=== PATIENT | female | born 1970 | race Caucasian/White ===

== ENCOUNTER 2024-08-17 08:48 | Inpatient (IN) ==
[2024-08-17] MEDS ORDERED: VANCOMYCIN CONSULT ACTIVE PRN ×2 (09:05→12:22)
--- NOTE | 2024-08-17 09:08 | Emergency Department Note ---
Impression & Plan Cellulitis and abscess of face ADMIT ED Provider Note HPI: History obtained from Patient. The patient is a 54-year-old female who presents the emergency department with a chief complaint of left-sided facial swelling and upper lip swelling. Patient states this has been ongoing since Saturday morning. Patient states she saw her PCP on Saturday and she was placed on Bactrim. Patient states over the course of the next 3 days the facial swelling worsened significantly. Patient states this morning when she woke up she had extreme swelling of the left upper lip and the inferior aspect of the left orbit and therefore came to the ER to be assessed. Patient states she was concerned that she might of had a spider bite on Saturday because she had similar lesions in the past that were from spider bites. On arrival here to the ER the patient is hypertensive but otherwise hemodynamically stable. She does not exhibit any respiratory distress. There is no trismus, no stridor, patient is saturating well on room air without tachypnea. ROS: - Per HPI Differential Diagnosis: Angioedema of the face, facial cellulitis, abscess, amongst other potential pathologies. *Outpatient medications and allergy history reviewed. PE: General: Alert HEENT: There is significant swelling of the inferior aspect of the left orbit and the left upper lip with surrounding erythema, there is a scabbed lesion underneath the left nostril without any active purulent drainage, uvula is midline, there is no posterior pharyngeal swelling noted, otherwise normocephalic, trachea midline Eyes: Extraocular eye movement is intact, no scleral erythema Pulmonary: Clear to auscultation bilaterally, no wheezing Cardio: Regular rate and rhythm GI: Abdomen is soft to palpation : No suprapubic tenderness MSK: No evidence of trauma or malformation of the extremities, no edema Skin: No evidence of rash Neuro: Alert, no focal deficits Psychiatric: Cooperative INDEPENDENT INTERPRETATIONS: court recording monitor: (As interpreted by myself): - An order was placed for continuous cardiac monitoring - Patient was noted to be in sinus rhythm with a rate of 90 Interventions provided in ED: -IV vancomycin, IV Unasyn, IV morphine, IV Zofran Medical Decision Making: IV was established and lab work obtained, patient was placed on personnel monitor. Lab work shows a mild leukocytosis at 11.81, hemoglobin is normal, platelet count is normal, CMP does not show any evidence of any critical findings. Given the degree of the facial swelling appreciated on exam, CT imaging of the facial bones were ordered with IV contrast, this does show evidence of an abscess underlying the area of maximum swelling to the left upper lip measuring approximately 4 cm in maximum length. This does appear to be loculated according to the interpreting radiologist. I discussed these findings with the on-call oral surgeon, Dr. Nielsen, and he did evaluate the patient at the bedside. Following his evaluation given the degree of swelling and worsening of the cellulitis over the past 24 hours despite being on antibiotics as an outpatient, we will admit the patient for IV antibiotics and further management. Dr. Nielsen is agreeable for consultation and requested admission to the medicine service. I discussed the patient's presentation with Dr. Paulson and the patient was placed for admission in stable condition. Consultants/Discussions held with other healthcare providers: -Hospitalist, Dr. Paulson -OMFS, Dr. Nielsen Disposition discussion held by myself with: -Patient Diagnosis: 1. Left-sided facial cellulitis with abscess, acute 2. Leukocytosis, acute Disposition: Admission Miguel Vance DO Emergency Medicine Past Med/Surg History Problem List (Updated 08/17/24 @ 16:30 by Miguel Vance DO) HTN (hypertension) GERD (gastroesophageal reflux disease) Cellulitis and abscess of face (Acute) Swollen upper lip Social History Smoking Status: Never smoker Preferred Language: South Korean Feels Safe at Home: Yes Allergies Allergies Allergy/AdvReac Type Severity Reaction Status Date / Time No Known Allergies Allergy Unverified 08/17/24 13:17 Home Meds Home Medications Medication Instructions Recorded Confirmed lisinopril 10 mg tablet 10 mg PO UD 08/17/24 08/17/24 Results & Data (ED) Vital Signs Vital Signs - 24 hr 08/17/24 08:51 08/17/24 09:30 08/17/24 09:30 Temperature 36.6 C Temperature Source Temporal Artery Scan Pulse Rate 78 79 72 Pulse Rate from SpO2 Sensor 73 Pulse Rhythm Regular Pulse Strength Normal Respiratory Rate 20 29 H Respiratory Effort / Characteristics Non-Labored Spontaneous Respiratory Depth Normal Respiratory Pattern Regular Blood Pressure 175/97 H 169/96 H Blood Pressure Mean 123 120 Blood Pressure Position Sitting Pulse Oximetry 98 97 Oxygen Delivery Method Room Air Sepsis Recent Fever Within 48 Hours No Sepsis New/Unexplained Change in Mental Status No Sepsis Action Taken by Nursing No Action Required 08/17/24 09:42 08/17/24 09:51 08/17/24 10:21 Temperature Temperature Source Pulse Rate 63 68 65 Pulse Rate from SpO2 Sensor 64 67 68 Pulse Rhythm Pulse Strength Respiratory Rate 20 20 20 Respiratory Effort / Characteristics Respiratory Depth Respiratory Pattern Blood Pressure 178/84 H Blood Pressure Mean 115 Blood Pressure Position Pulse Oximetry 97 94 95 Oxygen Delivery Method Sepsis Recent Fever Within 48 Hours Sepsis New/Unexplained Change in Mental Status Sepsis Action Taken by Nursing 08/17/24 10:30 08/17/24 10:54 08/17/24 11:03 Temperature Temperature Source Pulse Rate 64 76 72 Pulse Rate from SpO2 Sensor 64 76 74 Pulse Rhythm Pulse Strength Respiratory Rate 20 20 21 Respiratory Effort / Characteristics Respiratory Depth Respiratory Pattern Blood Pressure 172/87 H Blood Pressure Mean 115 Blood Pressure Position Pulse Oximetry 97 94 94 Oxygen Delivery Method Sepsis Recent Fever Within 48 Hours Sepsis New/Unexplained Change in Mental Status Sepsis Action Taken by Nursing 08/17/24 11:14 Temperature Temperature Source Pulse Rate Pulse Rate from SpO2 Sensor Pulse Rhythm Pulse Strength Respiratory Rate Respiratory Effort / Characteristics Respiratory Depth Respiratory Pattern Blood Pressure Blood Pressure Mean Blood Pressure Position Pulse Oximetry 96 Oxygen Delivery Method Room Air Sepsis Recent Fever Within 48 Hours Sepsis New/Unexplained Change in Mental Status Sepsis Action Taken by Nursing Laboratory Data 08/17/24 09:00 08/17/24 09:00 Lab Results 08/17/24 Range/Units 09:00 WBC 11.81 H (4.8-10.8) K/ul RBC 4.40 (4.20-5.40) M/uL Hgb 12.6 (12.0-16.0) g/dl Hct 38.6 (37.0-47.0) % MCV 87.7 (80.0-100.0) fL MCH 28.6 (25.0-34.0) pg MCHC 32.6 (32.0-36.0) g/dL RDW Std Deviation 41.6 (36.4-46.3) fL RDW Coeff of Pennie 12.9 (11.5-14.5) % Plt Count 193 (130-400) K/uL MPV 11.0 (9.4-12.4) fL Immature Gran % (Auto) 0.6 % Neut % (Auto) 85.9 % Lymph % (Auto) 5.5 % [place] % (Auto) 7.5 % Eos % (Auto) 0.3 % Baso % (Auto) 0.2 % Neut # (Auto) 10.15 H (1.40-6.50) K/uL Lymph # (Auto) 0.65 L (1.20-3.40) K/uL [place] # (Auto) 0.89 H (0.11-0.59) K/uL Eos # (Auto) 0.03 (0.00-0.50) K/uL Baso # (Auto) 0.02 (0.00-0.20) K/uL Immature Gran # (Auto) 0.07 (0.01-0.20) K/uL Sodium 139 (136-145) mmol/L Potassium 3.5 (3.5-5.1) mmol/L Chloride 102 (98-107) mmol/L Carbon Dioxide 27 (21-32) mmol/L Anion Gap 10 (3-11) BUN 5 L (6-23) mg/dl Creatinine 0.80 (0.6-1.2) mg/dl Est Cr Clr Drug Dosing 97.7 ml/min eGFR 88.60 BUN/Creatinine Ratio 6.3 L (10-20) Glucose 118 H (70-99(Fasting)) mg/dl Lactate 0.7 (0.4-2.0) mmol/L Calcium 9.5 (8.6-10.3) mg/dl Total Bilirubin 0.9 (0.2-1.0) mg/dl Direct Bilirubin 0.3 H (0-0.2) mg/dl AST 24 (13-39) U/L ALT 25 (7-52) U/L Alkaline Phosphatase 104 (34-104) U/L C-Reactive Protein 25.70 H (0-0.5) mg/dl Total Protein 7.6 (6.0-8.3) gm/dl Albumin 4.1 (3.4-5.0) gm/dl Procalcitonin 0.09 (0-0.5) ng/ml Administered Medications Ketorolac Tromethamine (Ketorolac Tromethamine 15 Mg/Ml Vial) 10 mg IV Q6H PRN PRN Reason: Pain, second line Stop: 08/22/24 12:21 Last Admin: 08/17/24 14:02 Dose: 10 mg Documented By: HS Morphine Sulfate (Morphine Sulfate 2 Mg/Ml Carp) 2 mg IV Q4H PRN PRN Reason: Breakthrough Pain Stop: 08/31/24 12:21 Last Admin: 08/17/24 14:43 Dose: 2 mg Documented By: HS Discontinued Medications Heparin Sodium (Porcine) (Heparin Sod 5,000 Unit/0.5 Ml Vial) 5,000 units SQ ONE ONE Stop: 08/17/24 14:01 Last Admin: 08/17/24 14:03 Dose: 5,000 units Documented By: HS Vancomycin HCl 2,250 mg/ (Dextrose) 545 mls @ 200 mls/hr IV NOW ONE Stop: 08/17/24 11:48 Last Infusion: 08/17/24 13:34 Dose: Infused Documented By: Admin: 08/17/24 10:50 Dose: 200 mls/hr Documented By: HS Ampicillin Sodium/Sulbactam Sodium (Unasyn) 3,000 mg in 100 mls @ 200 mls/hr IV NOW STA Stop: 08/17/24 09:34 Last Infusion: 08/17/24 10:35 Dose: Infused Documented By: Admin: 08/17/24 09:28 Dose: 200 mls/hr Documented By: HS Sodium Chloride (Nss) 1,000 mls @ 999 mls/hr IV .Q1H1M ONE Stop: 08/17/24 10:33 Last Infusion: 08/17/24 11:36 Dose: Infused Documented By: Admin: 08/17/24 09:47 Dose: 999 mls/hr Documented By: HS Ioversol (Optiray 320 100ml) 94 ml IV ONCE ONE Stop: 08/17/24 10:09 Last Admin: 08/17/24 10:09 Dose: 94 ml Documented By: JAR Morphine Sulfate (Morphine Sulfate 4 Mg/Ml 1 Ml Carp\Vial) 4 mg IV NOW STA Stop: 08/17/24 09:05 Last Admin: 08/17/24 09:15 Dose: 4 mg Documented By: HS Morphine Sulfate (Morphine Sulfate 4 Mg/Ml 1 Ml Carp\Vial) 4 mg IV NOW STA Stop: 08/17/24 10:59 Last Admin: 08/17/24 11:08 Dose: 4 mg Documented By: HS Ondansetron HCl (Ondansetron Inj 2 Mg/Ml 2 Ml Vial) 4 mg IV NOW STA Stop: 08/17/24 09:05 Last Admin: 08/17/24 09:15 Dose: 4 mg Documented By: HS Imaging Data Radiologist's Impression: Face CT 08/17/24 09:[address] WITH CONTRAST CLINICAL HISTORY: Left sided facial swelling eval for abscess COMPARISON STUDY: No previous studies for comparison. TECHNIQUE: Axial images of the face were obtained following intravenous injection of 94 cc of Optiray 320 IV. Sagittal and coronal reformats were viewed. Automated exposure control was utilized for the study. A dose lowering technique was utilized adhering to the principles of ALARA. FINDINGS: Visualized portions of the intracranial contents are unremarkable. No orbital abnormality is slight identified. The mastoid air cells are clear. The sinuses are essentially clear. There is extensive facial inflammation centered on the upper lip. Noted made of a multiloculated rim-enhancing fluid collection within the upper lip which measures 4.1 x 1.2 cm. There is no soft tissue gas. No associated erosion of the maxilla is present. Multiple enlarged upper cervical lymph nodes are present. Index right level 2 node on image 202 181 measures 1.6 x 1.3 cm. Epiglottis is normal. Major vasculature of the upper neck is patent. The patient is edentulous. IMPRESSION: 1. 4.1 x 1.2 cm complex rim-enhancing collection of the upper lip which contains multiple septations. This is suggestive of a multiloculated abscess. Extensive associated facial inflammation consistent with cellulitis. No soft tissue gas. No evidence for acute osteomyelitis. 2. Multiple enlarged upper cervical lymph nodes which are likely reactive. ACT 112: Negative or not required by law. Electronically signed by: Francisco Shea M.D. 08/17/2024 10:47 AM Discharge Plan Visit Data Chief Complaint: Bite Stated Complaint: POSSIBLE SPIDER BITE, HAS RX BUT GETTING WORSE ED Provider: Miguel Vance Discharge Problem: Cellulitis and abscess of face Patient Disposition: Admitted As Inpatient Discharge Instructions Interventions: ED Discharge Assessment Last Done: 08/17/24 13:54
[2024-08-17] MEDS: MoRPHine SULFATE 4 MG/ML 1 ML CARP\\VIAL IV STA ×2 (09:15→11:08)
[2024-08-17] MEDS: ONDANSETRON INJ 2 MG/ML 2 ML VIAL IV STA (09:15)
[2024-08-17 09:25] LABS: Basophils # (auto) 0.02 K/uL (0.00-0.20); Basophils % (auto) 0.2 %; Eosinophils # (auto) 0.03 K/uL (0.00-0.50); Eosinophils % (auto) 0.3 %; Hematocrit (blood only) 38.6 % (37.0-47.0); Hemoglobin 12.6 g/dl (12.0-16.0); Immature Granulocytes # (auto) 0.07 K/uL (0.01-0.20); Immature Granulocytes % (auto) 0.6 %; Lymphocytes # (auto) 0.65 K/uL (1.20-3.40); Lymphocytes % (auto) 5.5 %; Mean Corpuscular Hemoglobin 28.6 pg (25.0-34.0); Mean Corpuscular Hgb Conc 32.6 g/dL (32.0-36.0); Mean Corpuscular Volume 87.7 fL (80.0-100.0); Monocytes # (auto) 0.89 K/uL (0.11-0.59); Monocytes % (auto) 7.5 %; Neutrophils # (auto) 10.15 K/uL (1.40-6.50); Neutrophils % (auto) 85.9 %; Platelet Count 193 K/uL (130-400); RDW Coefficient of Variation 12.9 % (11.5-14.5); RDW Standard Deviation 41.6 fL (36.4-46.3); White Blood Count 11.81 K/ul (4.8-10.8)
[2024-08-17] MEDS: AMPICILLIN/SULBACTAM SOD 3,000 MG/100 ML BAG IV STA (09:28)
[2024-08-17 09:46] LABS: Albumin Level 4.1 gm/dl (3.4-5.0); BUN Creatinine Ratio 6.3 (10-20); Bilirubin Direct 0.3 mg/dl (0-0.2); Bilirubin,Total 0.9 mg/dl (0.2-1.0); Calcium 9.5 mg/dl (8.6-10.3); Creatinine Clr Calc Pharmacy 97.7 ml/min; Potassium 3.5 mmol/L (3.5-5.1); Total Protein 7.6 gm/dl (6.0-8.3)
[2024-08-17] MEDS: SODIUM CHLORIDE 0.9% 1,000 ML IV ONE (09:47)
[2024-08-17] MEDS: OPTIRAY 320 100ml IV ONE (10:09)
--- NOTE | 2024-08-17 10:49 | CT Scan Report ---
FACIAL CT WITH CONTRAST CLINICAL HISTORY: Left sided facial swelling eval for abscess COMPARISON STUDY: No previous studies for comparison. TECHNIQUE: Axial images of the face were obtained following intravenous injection of 94 cc of Optiray 320 IV. Sagittal and coronal reformats were viewed. Automated exposure control was utilized for the study. A dose lowering technique was utilized adhering to the principles of ALARA. FINDINGS: Visualized portions of the intracranial contents are unremarkable. No orbital abnormality i s slight identified. The mastoid air cells are clear. The sinuses are essentially clear. There is ext ensive facial inflammation centered on the upper lip. Noted made of a multiloculated rim-enhancing fl uid collection within the upper lip which measures 4.1 x 1.2 cm. There is no soft tissue gas. No asso ciated erosion of the maxilla is present. Multiple enlarged upper cervical lymph nodes are present. I ndex right level 2 node on image 202 181 measures 1.6 x 1.3 cm. Epiglottis is normal. Major vasculatu re of the upper neck is patent. The patient is edentulous. IMPRESSION: 1. 4.1 x 1.2 cm complex rim-enhancing collection of the upper lip which contains multiple septations . This is suggestive of a multiloculated abscess. Extensive associated facial inflammation consistent with cellulitis. No soft tissue gas. No evidence for acute osteomyelitis. 2. Multiple enlarged upper cervical lymph nodes which are likely reactive. ACT 112: Negative or not required by law. Electronically signed by: Francisco Shea M.D. 08/17/2024 10:47 AM
[2024-08-17] MEDS: VANCOMYCIN HCL 2,250 MG in DEXTROSE 5% 500 ML IV ONE (10:50)
--- NOTE | 2024-08-17 12:04 | History & Physical Report ---
Date of Service August 17, 2024 Assessment & Plan (1) Cellulitis and abscess of face: Plan: Facial cellulitis with abscess Facial CT shows a 4.1 x 1.2 complex rim-enhancing upper lip fluid collection with multiple septations suggestive of multiloculated abscess and extensive associated facial inflammation consistent with cellulitis. No gas and no evidence of underlying osteo. Multiple likely reactive cervical lymph nodes Mild leukocytosis at 11. Pro-Shayne is normal Patient Dors is temperature of 99, and chills chest since this morning. Does not meet sepsis criteria on admission. Lactate is normal. She is mildly hypertensive with a history of hypertensive no longer taking lisinopril and which may be aggravated by pain; hypotension has not been present, no tachycardia, no tachypnea OMFS consulted. Do not recommend drainage at time of admission, anticipate responding slowly to antibiotics & and high suspicion for MRSA. She does have a history of a MRSA infection of her abdomen previously which resolved. Given abscess forming infection with failure of Bactrim, will treat for MRSA with vancomycin and discontinue gram-negative coverage. If she is worsening then can add Unasyn versus Zosyn at that time. CRP added and trended No evidence of airway compromise Continue vancomycin EOMs are intact without pain. No signs of orbital cellulitis on exam (2) GERD (gastroesophageal reflux disease): Plan: GERD PPI continued (3) HTN (hypertension): Plan: Hypertension Patient reports she is on lisinopril only but ran out of this several months ago. Is not at risk for NICHOLAS angioedema She is hypertensive 170s/87, reports she has outpatient hypertension not currently treated due to running out of her NICHOLAS as noted. Given substantial lip swelling will defer restarting NICHOLAS and institute control with amlodipine x 1. If lip swelling resolves can transition back to lisinopril on discharge Admission and Anticipated Discharge Date Admission Date: DVT prophylaxis: SCDs, heparin sq x1. additional pharmacoprophylaxis held p ending evaluation for progression and possible I&D Diet: Clears, no evidence of airway compromise or difficulty swallowing pain is limited to her lip. N.p.o. if any difficulty swallowing develops or if I&D is scheduled Disposition: MSO CODE STATUS: Full code History of Present Illness Primary Care Provider: NO PCP Savanah is a 54-year-old female who presents to the ER with left facial swelling, left lip swelling worsening over 3 days. She was placed on Bactrim as an outpatient however morning of admission she had significantly worsening left upper lip and left orbital swelling and presented to the ER. On ER assessment she did not have trismus stridor or airway compromise Savanah is seen at the bedside. She reports that her symptoms began with a small pimple on her left lip on Saturday. Saturday and Saturday she had swelling develop and was put on Bactrim but woke up today with significantly increased swelling in her left face. She also had a temperature of 99 at home and a feeling of feverishness and chills for the first time this morning. No nausea or vomiting. She reports she has some discomfort when trying to eat and drink due to moving her lip but has had no difficulty swallowing and no aspiration. She has not had any wheezing, shortness of breath or a sensation that her airway is blocked. She does have pain localized around her lip which is improved since getting pain medicine in the ER. She reports she has had occasional infections she attributes to spider bites but has never had an infection like this before. She denies antibiotic allergies. She vapes, and declines a tobacco patch on admission. She denies alcohol use. Denies recreational drug use. Denies medication allergies. She endorses a history of hypertension that had been on lisinopril but she ran out of this and has not filled lisinopril in several months. Denies any other medical problems or prescription medications, denies supplemental and [id number] medication use. Full code Home Medications Medication Instructions Recorded Confirmed Type mupirocin 2 % topical ointment 1 applic topical TID 08/17/24 History sulfamethoxazole 800 1 tab PO BID 08/17/24 History mg-trimethoprim 160 mg tablet Past Med/Surg History Problem List (Updated 08/17/24 @ 12:20 by Brayan Paulson MD) HTN (hypertension) GERD (gastroesophageal reflux disease) Cellulitis and abscess of face Swollen upper lip Social History Smoking Status: Never smoker Preferred Language: Thai Feels Safe at Home: Yes Physical Exam Physical Exam: General: A&Ox3. NAD. Cooperative. HEENT: Left lip with substantial swelling, erythema, and tenderness extending into the lower orbital border. Extraocular movements are intact without pain. Vision is intact without compromise. Hearing is grossly intact. Uvula is midline, no stridor, no evidence of airway compromise on evaluation Pulm: CTAB A&P. -wheezes, -rales, -rhonchi. Symmetrical chest rise. No increased work of breathing. No respiratory distress. Cardiac: RRR, -mrg. Radial pulses intact and symmetrical. Abdominal: Nontender, nondistended, soft. BS present. Results & Data Results & Data Vital Signs (Past 12 Hours) Vital Signs Temp Pulse Resp BP Pulse Ox O2 Del Method 08/17/24 11:14 96 Room Air 08/17/24 11:03 72 21 172/87 H 94 08/17/24 10:54 76 20 94 08/17/24 10:30 64 20 97 08/17/24 10:21 65 20 95 08/17/24 09:51 68 20 178/84 H 94 08/17/24 09:42 63 20 97 08/17/24 09:30 72 29 H 169/96 H 97 08/17/24 09:30 79 08/17/24 08:51 36.6 C 78 20 175/97 H 98 Room Air PG Care Time/CCT Total # of Minutes Spent Total Time Spent with Patient: Total time spent is greater than 50% in coordination of care (as documented) at patient's floor/unit and/or counseling patient: Coding Level of Care Code 98859 INT INP/OBS CARE 3/75MIN Diagnoses Cellulitis and abscess of face L03.211; L02.01 GERD (gastroesophageal reflux disease) K21.9 HTN (hypertension) I10
--- NOTE | 2024-08-17 12:06 | Oral/Maxillofacial Consult ---
Date of Consultation August 17, 2024 Assessment & Plan (1) Swollen upper lip: History of Present Illness Reason for Consultation: acute facial swelling upper lip Requesting Physician: ER History of Present Illness The patient is a 54-year-old female who presents the emergency department with a chief complaint of left-sided facial swelling and upper lip swelling. Patient states this has been ongoing since Saturday morning. Patient states she saw her PCP on Saturday and she was placed on Bactrim. Patient states over the course of the next 3 days the facial swelling worsened significantly. Patient states this morning when she woke up she had extreme swelling of the left upper lip and the inferior aspect of the left orbit and therefore came to the ER to be assessed. Patient states she was concerned that she might of had a spider bite on Saturday because she had similar lesions in the past that were from spider bites. On arrival here to the ER the patient is hypertensive but otherwise hemodynamically stable. She does not exhibit any respiratory distress. There is no trismus, no stridor, patient is saturating well on room air without tachypnea. She had a small pimple which Savanah tried to drain only resulting in the swelling getting worse. On Saturday she was Rx Bactrian after 2 days got worse-came to ER with significant upper lip swelling and base of nose and nasal septum area. Very indurated, red, swollen and painful. I suspect a MRSA infection given the location and appearance - she told me she had a MRSA infection in the past on her abdomen. There is no indication for an I&D at this time-as the area is very indurated. Plan I suggest that she be admitted to medical service, consider ID consult, IV antibiotics, heat to upper lip area. I will and plan I&D when and if indicated. Usually with MRSA infection they respond slowly to IV, heat and massage. Dr Nielsen to follow Mrs. Benavidez once admitted to the floor Allergies Allergy/AdvReac Type Severity Reaction Status Date / Time No Known Allergies Allergy Unverified 08/17/24 13:17 Home Medications Medication Instructions Recorded Confirmed Type lisinopril 10 mg tablet 10 mg PO UD 08/17/24 08/17/24 History Patient History Social History Smoking Status: Current every day smoker Tobacco Type: E-cigarettes / Vaping Second Hand Exposure: No; Do You Dip or Chew Tobacco: No; Tobacco Cessation Education Requested by Patient: No Hx Alcohol Use: No Hx Substance Use: No Preferred Language: Swedish Communication Ability: Effective [employer] Required: No Beliefs That Will Affect Care: None Current Living Situation: Alone Other Information That Helps Us Care for You: No Feels Safe at Home: Yes Assistive Devices: None Results & Data Vital Signs (Past 12 Hours) Vital Signs Temp Pulse Resp BP Pulse Ox O2 Del Method 08/17/24 11:14 96 Room Air 08/17/24 11:03 72 21 172/87 H 94 08/17/24 10:54 76 20 94 08/17/24 10:30 64 20 97 08/17/24 10:21 65 20 95 08/17/24 09:51 68 20 178/84 H 94 08/17/24 09:42 63 20 97 08/17/24 09:30 72 29 H 169/96 H 97 08/17/24 09:30 79 08/17/24 08:51 36.6 C 78 20 175/97 H 98 Room Air PG Care Time/CCT Total # of Minutes Spent Total Time Spent with Patient: Total time spent is greater than 50% in coordination of care (as documented) at patient's floor/unit and/or counseling patient: Coding Level of Care Code 52110 OFFICE CONSULT LVL 01/03M Diagnoses Swollen upper lip R22.0
[2024-08-17 13:07] LABS: C Reactive Protein 25.7 mg/dl (0-0.5)
[2024-08-17] MEDS ORDERED: POLYETHYLENE (MIRALAX) 17 GM PACK PO PRN (13:53)
[2024-08-17] MEDS ORDERED: ACETAMINOPHEN 325 MG TAB PO PRN (13:53)
[2024-08-17] MEDS ORDERED: ONDANSETRON INJ 2 MG/ML 2 ML VIAL IV PRN (13:53)
[2024-08-17] MEDS: KETOROLAC TROMETHAMINE 15 MG/ML VIAL IV PRN (14:02)
[2024-08-17] MEDS: HEPARIN SOD 5,000 UNIT/0.5 ML VIAL SQ ONE (14:03)
--- NOTE | 2024-08-17 14:18 | Pharmacy Report ---
Pharmacy PK ABX Note - Date of Service August 17, 2024 - Assessment and Plan Assessment 54 year old F receiving Vancomycin for treatment of facial cellulitis with abscess. * Day #1 of antimicrobial therapy. * Afebrile. Leukocytosis of 12k. SCr 0.80, CrCl 98, baseline renal fxn unknown. Lactate and procalcitonin negative. * Blood cultures pending. * No plans for I&D yet. Plan Vancomycin * Loading dose: 2250 mg IV x 1 * Maintenance dose: 1250 mg IV every 12 hours * Regimen is predicted to achieve target AUC/BETO of 400-600 mg/L.hr * Random level ordered for: 08/19/24 Pharmacy will continue to follow and will adjust dose/frequency as necessary. Thank you. Pharmacy has transitioned to AUC monitoring for vancomycin. AUC/BETO is the preferred PK/PD target and is associated with decreased risk of nephrotoxicity compared to traditional trough targets.
[2024-08-17] MEDS: MoRPHine SULFATE 2 MG/ML CARP IV PRN (14:43)
[2024-08-17] MEDS ORDERED: AMPICILLIN/SULBACTAM SOD 3,000 MG/100 ML BAG IV SCH (15:00)
[2024-08-17] MEDS: ACETAMINOPHEN 325 MG TAB PO PRN (16:35)
[2024-08-17] MEDS: VANCOMYCIN HCL 1,250 MG in DEXTROSE 5% 250 ML IV SCH (21:30)
--- NOTE | 2024-08-18 06:50 | Hospitalist Progress Note ---
Date of Service August 18, 2024 Assessment & Plan (1) Cellulitis and abscess of face: Plan: Facial cellulitis with abscess Facial CT shows a 4.1 x 1.2 complex rim-enhancing upper lip fluid collection with multiple septations suggestive of multiloculated abscess and extensive associated facial inflammation consistent with cellulitis. No gas and no evidence of underlying osteo. Multiple likely reactive cervical lymph nodes Mild leukocytosis at 11. Pro-Shayne is normal Patient Dors is temperature of 99, and chills chest since this morning. Does not meet sepsis criteria on admission. Lactate is normal. She is mildly hypertensive with a history of hypertensive no longer taking lisinopril and which may be aggravated by pain; hypotension has not been present, no tachycardia, no tachypnea OMFS consulted. Do not recommend drainage at time of admission, anticipate responding slowly to antibiotics & and high suspicion for MRSA. She does have a history of a MRSA infection of her abdomen previously which resolved. Given abscess forming infection with failure of Bactrim, will treat for MRSA with vancomycin and discontinue gram-negative coverage. If she is worsening then can add Unasyn versus Zosyn at that time. CRP added and trended No evidence of airway compromise Continue vancomycin EOMs are intact without pain. No signs of orbital cellulitis on exam (2) GERD (gastroesophageal reflux disease): Plan: GERD PPI continued (3) HTN (hypertension): Plan: Hypertension Patient reports she is on lisinopril only but ran out of this several months ago. Is not at risk for NICHOLAS angioedema She is hypertensive 170s/87, reports she has outpatient hypertension not currently treated due to running out of her NICHOLAS as noted. Given substantial lip swelling will defer restarting NICHOLAS and institute control with amlodipine x 1. If lip swelling resolves can transition back to lisinopril on discharge (4) Swollen upper lip: Admission and Anticipated Discharge Date Admission Date: August 17, 2024 Results & Data Results & Data Vital Signs (Past 12 Hours) Vital Signs Temp Pulse Resp BP Pulse Ox O2 Del Method 08/17/24 19:41 36.7 C 81 16 114/70 94 Room Air
[2024-08-18 07:53] LABS: Basophils # (auto) 0.01 K/uL (0.00-0.20); Basophils % (auto) 0.1 %; Eosinophils # (auto) 0.07 K/uL (0.00-0.50); Eosinophils % (auto) 0.9 %; Hemoglobin 10.6 g/dl (12.0-16.0); Immature Granulocytes # (auto) 0.02 K/uL (0.01-0.20); Immature Granulocytes % (auto) 0.2 %; Lymphocytes # (auto) 0.83 K/uL (1.20-3.40); Lymphocytes % (auto) 10.4 %; Mean Corpuscular Hemoglobin 28.9 pg (25.0-34.0); Mean Corpuscular Hgb Conc 33.1 g/dL (32.0-36.0); Mean Corpuscular Volume 87.2 fL (80.0-100.0); Monocytes # (auto) 0.99 K/uL (0.11-0.59); Monocytes % (auto) 12.4 %; Neutrophils # (auto) 6.09 K/uL (1.40-6.50); Platelet Count 180 K/uL (130-400); RDW Coefficient of Variation 13.2 % (11.5-14.5); RDW Standard Deviation 41.3 fL (36.4-46.3); Red Blood Count 3.67 M/uL (4.20-5.40); White Blood Count 8.01 K/ul (4.8-10.8)
[2024-08-18] MEDS: amLODIPine BESYLATE 5 MG TAB PO SCH (07:53)
[2024-08-18 08:05] LABS: BUN Creatinine Ratio 8.8 (10-20); C Reactive Protein 25.6 mg/dl (0-0.5); Creatinine Clr Calc Pharmacy 86.1 ml/min; Potassium 3.6 mmol/L (3.5-5.1)
[2024-08-18] MEDS: oxyCODONE HCL IR 5 MG TAB (IMMEDIATE RELEASE) PO PRN (09:01)
[2024-08-18 14:13] LABS: A calco-baum cmplx NotReported Not Detected (NotDetected); Bact fragilis Not Reported Not Detected (NotDetected); Blood Culture Id Panel See PCR Comment (NotDetected); C auris Not Reported Not Detected (NotDetected); Calbicans Not Reported Not Detected (NotDetected); Candida glabrata Not Reported Not Detected (NotDetected); Candida krusei Not Reported Not Detected (NotDetected); Cneoformans/gatti Not Reported Not Detected (NotDetected); Cparapsilosis Not Reported Not Detected (NotDetected); E cloacae compx Not Reported Not Detected (NotDetected); Efaecalis Not Reported Not Detected (NotDetected); Efaecium Not Reported Not Detected (NotDetected); Enterobacterales Not Reported Not Detected (NotDetected); Escherichia coli Not Reported Not Detected (NotDetected); H influenzae Not Reported Not Detected (NotDetected); K aerogenes Not Reported Not Detected (NotDetected); Koxytoca Not Reported Not Detected (NotDetected); Kpneumoniae grp Not Reported Not Detected (NotDetected); Lmonocyt Not Reported Not Detected (NotDetected); N meningitidis Not Reported Not Detected (NotDetected); P aeruginosa Not Reported Not Detected (NotDetected); Proteus spp Not Reported Not Detected (NotDetected); Salmonella spp Not Reported Not Detected (NotDetected); Staph lugdunensis Not Reported Not Detected (NotDetected); Staph spp. Not Reported DETECTED (NotDetected); Staphaureus Not Reported Not Detected (NotDetected); Staphepi Not Reported Not Detected (NotDetected); Stenmaltophilia Not Reported Not Detected (NotDetected); Strep agal(GrpB) Not Reported Not Detected (NotDetected); Strep pneum Not Reported Not Detected (NotDetected); Strep pyog (GrpA) Not Reported Not Detected (NotDetected); Strep spp Not Reported Not Detected (NotDetected)
[2024-08-18 14:27] LABS: Staphylococcus spp. DETECTED (NotDetected)
--- NOTE | 2024-08-18 15:03 | Hospitalist Progress Note ---
Date of Service August 18, 2024 Assessment & Plan (1) Cellulitis and abscess of face: Plan: Currently on intravenous vancomycin, day 2. 1 set of blood cultures positive for gram-positive cocci. Will wait to see if this is a contaminant or not. Oral maxillofacial surgery consultation noted. She will eventually need incision and drainage of what appears to be an abscess. (2) GERD (gastroesophageal reflux disease): Plan: Stable. Continue PPI therapy (3) HTN (hypertension): Plan: Blood pressure is acceptable on amlodipine. She recently ran out of her lisinopril. Plan Anticipate eventual discharge back to her home later this week Admission and Anticipated Discharge Date Admission Date: August 17, 2024 Subjective Alert and oriented. Afebrile. 1 set of blood cultures positive for gram- positive cocci. Will await final identification. She is on intravenous vancomycin, day 2. Oral maxillofacial surgery consultation noted. Blood pressure is controlled with amlodipine. Diet advanced to full liquids Review of Systems 2 Review of Systems: Constitutionalno fever or chills ENTno blurred vision, no double vision, no epistaxis, no sore throat Respiratoryno cough, no wheezing, no shortness of breath Cardiacno palpitations, no chest pain, no syncope Sheldon nausea, vomiting, diarrhea, melena, hematochezia GUno urinary retention, no urinary incontinence, no dysuria, no hematuria Musculoskeletalno joint pain, no muscle tenderness Skindiffuse erythema left face with edema and erythema upper lip Neurono isolated weakness, no paresthesia Psychno depression, no anxiety Physical Exam 2 Physical Exam: General-alert and oriented x3, no fever, no chills HEENT-swelling upper left more pronounced on the left side with diffuse erythema and tenderness left maxillary area. Pupils equal and reactive to light, extraocular muscles intact Neck-no lymphadenopathy or thyromegaly, trachea midline Chest-clear to auscultation. No rales, wheezing or rhonchi Cardiac-regular rate and rhythm, normal S1 and S2 Abdomen-normal bowel sounds, no hepatosplenomegaly Extremities-no cyanosis, clubbing, or edema Neuro-cranial nerves II through XII intact, motor and sensory function within normal limits, strength symmetrical, no focal deficits Psych-normal affect, normal mood Results & Data Results & Data Vital Signs (Past 12 Hours) Vital Signs Temp Pulse Resp BP Pulse Ox O2 Del Method 08/18/24 11:23 36.9 C 70 14 123/80 96 Room Air 08/18/24 07:11 37.0 C 79 14 147/81 H 92 Room Air Laboratory Results 08/18/24 07:14 08/18/24 07:14 PG Care Time/CCT Total # of Minutes Spent Total Time Spent with Patient: Total time spent is greater than 50% in coordination of care (as documented) at patient's floor/unit and/or counseling patient: Coding Level of Care Code 26043 SUB INP/OBS CARE 3/50MIN Diagnoses Cellulitis and abscess of face L03.211; L02.01 GERD (gastroesophageal reflux disease) K21.9 HTN (hypertension) I10
[2024-08-19 08:24] LABS: Basophils # (auto) 0.02 K/uL (0.00-0.20); Basophils % (auto) 0.4 %; Eosinophils # (auto) 0.13 K/uL (0.00-0.50); Eosinophils % (auto) 2.5 %; Hematocrit (blood only) 32.7 % (37.0-47.0); Hemoglobin 10.7 g/dl (12.0-16.0); Immature Granulocytes # (auto) 0.02 K/uL (0.01-0.20); Immature Granulocytes % (auto) 0.4 %; Lymphocytes # (auto) 1.01 K/uL (1.20-3.40); Lymphocytes % (auto) 19.7 %; Mean Corpuscular Hemoglobin 29.1 pg (25.0-34.0); Mean Corpuscular Hgb Conc 32.7 g/dL (32.0-36.0); Mean Corpuscular Volume 88.9 fL (80.0-100.0); Mean Platelet Volume 10.5 fL (9.4-12.4); Monocytes # (auto) 0.61 K/uL (0.11-0.59); Monocytes % (auto) 11.9 %; Neutrophils # (auto) 3.33 K/uL (1.40-6.50); Neutrophils % (auto) 65.1 %; Platelet Count 197 K/uL (130-400); RDW Coefficient of Variation 12.9 % (11.5-14.5); Red Blood Count 3.68 M/uL (4.20-5.40); White Blood Count 5.12 K/ul (4.8-10.8)
[2024-08-19 08:43] LABS: BUN Creatinine Ratio 10.5 (10-20); Calcium 9.3 mg/dl (8.6-10.3); Creatinine Clr Calc Pharmacy 91.1 ml/min; Potassium 3.6 mmol/L (3.5-5.1)
[2024-08-19] MEDS: VANCOMYCIN LEVEL ONE (09:08)
--- NOTE | 2024-08-19 09:55 | Oral/Maxillofacial Progress Nt ---
Date of Service August 19, 2024 Assessment & Plan Admission and Anticipated Discharge Date Admission Date: August 17, 2024 Subjective I saw Savanah on Aug 18 at 12:30 pm. She is not feeling any better and as a matter of fact the swelling is getting worse. It is starting to point intraoral and at the base of the nose. I will plan I&D Aug 19. I reviewed the procedure with her and will set her up for the OR. NPO pre-op Will sign the consent when she comes down for surgery on Aug.19. Results & Data Vital Signs (Past 12 Hours) Vital Signs Temp Pulse Resp BP Pulse Ox O2 Del Method 08/19/24 07:13 36.7 C 61 16 127/79 96 Room Air PG Care Time/CCT Total # of Minutes Spent Total Time Spent with Patient: Total time spent is greater than 50% in coordination of care (as documented) at patient's floor/unit and/or counseling patient: Coding Level of Care Code None
--- NOTE | 2024-08-19 10:23 | XRay Report ---
XR chest 1V portable HISTORY: 54 years-old Female pre-op preoperative exam. No acute chest complaints COMPARISON: None TECHNIQUE: AP view of the chest FINDINGS: Cardiac silhouette is normal. The lungs appear clear. No pneumothorax, large pleural effusion or airs pace consolidation. Bones of the chest appear grossly intact. IMPRESSION: No acute process. ACT 112: Negative or not required by law. The above report was generated using voice recognition software. It may contain grammatical, syntax o r spelling errors. Electronically signed by: Chapincito Chaves M.D. 08/19/2024 10:21 AM
[2024-08-19] MEDS: LACTATED RINGER'S 1,000 ML IV SCH (12:30)
--- NOTE | 2024-08-19 12:47 | Hospitalist Progress Note ---
Date of Service August 19, 2024 Assessment & Plan (1) Cellulitis and abscess of face: Plan: Currently on intravenous vancomycin, day 3. She appears to be improving. 1 set of blood cultures positive for gram-positive cocci. Final identification is pending. Will wait to see if this is a contaminant or not. Oral maxillofacial surgery consultation noted. She will undergo an incision and drainage procedure later today, August 19 (2) GERD (gastroesophageal reflux disease): Plan: Stable. Continue PPI therapy (3) HTN (hypertension): Plan: Blood pressure is acceptable on amlodipine. She recently ran out of her lisinopril. Plan Anticipate eventual discharge back to her home later this week on an oral antibiotic Admission and Anticipated Discharge Date Admission Date: August 17, 2024 Subjective She looks and feels better today. Vancomycin day 3. Blood pressure is well- controlled with addition of amlodipine. Less facial erythema and lip edema. Incision and drainage procedure later today by Dr. Nielsen. Preoperative EKG and portable chest x-ray requested Review of Systems 2 Review of Systems: Constitutionalno fever or chills ENTno blurred vision, no double vision, no epistaxis, no sore throat Respiratoryno cough, no wheezing, no shortness of breath Cardiacno palpitations, no chest pain, no syncope Sheldon nausea, vomiting, diarrhea, melena, hematochezia GUno urinary retention, no urinary incontinence, no dysuria, no hematuria Musculoskeletalno joint pain, no muscle tenderness Skindiffuse erythema left face with edema and erythema upper lip Neurono isolated weakness, no paresthesia Psychno depression, no anxiety Physical Exam 2 Physical Exam: General-alert and oriented x3, no fever, no chills HEENT-swelling upper left more pronounced on the left side with diffuse erythema and tenderness left maxillary area. Pupils equal and reactive to light, extraocular muscles intact Neck-no lymphadenopathy or thyromegaly, trachea midline Chest-clear to auscultation. No rales, wheezing or rhonchi Cardiac-regular rate and rhythm, normal S1 and S2 Abdomen-normal bowel sounds, no hepatosplenomegaly Extremities-no cyanosis, clubbing, or edema Neuro-cranial nerves II through XII intact, motor and sensory function within normal limits, strength symmetrical, no focal deficits Psych-normal affect, normal mood Results & Data Results & Data Vital Signs (Past 12 Hours) Vital Signs Temp Pulse Resp BP Pulse Ox O2 Del Method 11/13/24 12:22 36.8 C 60 16 129/70 95 Room Air 08/19/24 07:13 36.7 C 61 16 127/79 96 Room Air Laboratory Results 08/19/24 08:05 08/19/24 08:05 PG Care Time/CCT Total # of Minutes Spent Total Time Spent with Patient: Total time spent is greater than 50% in coordination of care (as documented) at patient's floor/unit and/or counseling patient: Coding Level of Care Code 78198 SUB INP/OBS CARE 2/35MIN Diagnoses Cellulitis and abscess of face L03.211; L02.01 GERD (gastroesophageal reflux disease) K21.9 HTN (hypertension) I10
--- NOTE | 2024-08-19 13:11 | Pharmacy Report ---
Pharmacy PK ABX Note - Date of Service August 19, 2024 - Assessment and Plan Assessment 08/19: * Vancomycin random level this AM came back at ~10 mcg/ml - current vancomycin regimen estimated to achieve goal AUC, therefore will continue current regimen. Prelim BC with Gm + cocci in clusters 1/4, BCID2 - staph aureus with no resistance genes detected. Potentially coag neg staph/contaminant, will await final culture results. Patient to have I&D done today - will follow up on cultures. 08/17: 54 year old F receiving Vancomycin for treatment of facial cellulitis with abscess. * Day #1 of antimicrobial therapy. * Afebrile. Leukocytosis of 12k. SCr 0.80, CrCl 98, baseline renal fxn unknown. Lactate and procalcitonin negative. * Blood cultures pending. * No plans for I&D yet. Plan Vancomycin * Continue vancomycin 1250 mg iv q 12 hours Pharmacy will continue to follow and will adjust dose/frequency as necessary. Thank you. Pharmacy has transitioned to AUC monitoring for vancomycin. AUC/BETO is the preferred PK/PD target and is associated with decreased risk of nephrotoxicity compared to traditional trough targets.
[2024-08-19] MEDS ORDERED: DEXAMETHASONE SOD INJ 4 MG/ML VIAL ONE (13:47)
[2024-08-19] MEDS ORDERED: MIDAZOLAM HCL 1 MG/ML 2ML VIAL ONE (13:47)
[2024-08-19] MEDS ORDERED: PROPOFOL IV EMULSION 10 MG/ML 20 ML VIAL IV ONE (13:47)
[2024-08-19] MEDS ORDERED: ONDANSETRON INJ 2 MG/ML 2 ML VIAL ONE (13:47)
[2024-08-19] MEDS ORDERED: fentaNYL citrate PF 100 MCG/2 ML VIAL ONE (13:47)
[2024-08-19] MEDS ORDERED: LIDOCAINE 2% 2 ML VIAL/AMP(20MG/ML) INFIL ONE ×2 (13:47→13:50)
[2024-08-19] MEDS ORDERED: SUCCINYLCHOLINE CHLORIDE 20 MG/ML 10 ML VIAL IV ONE (13:50)
[2024-08-19] MEDS ORDERED: LARYING-O-JET KIT (LTA) ONE (13:50)
[2024-08-19] MEDS ORDERED: ePHEDrine sulfate 50 MG/ML AMP IV PRN (13:59)
[2024-08-19] MEDS ORDERED: HYDROmorphone INJ 2 MG/ML SYR/VIAL IV PRN (13:59)
[2024-08-19] MEDS ORDERED: ONDANSETRON INJ 2 MG/ML 2 ML VIAL IV PRN (13:59)
[2024-08-19] MEDS ORDERED: ATROPINE SULFATE 0.1 MG/ML 10ML SYR IV PRN (13:59)
--- NOTE | 2024-08-19 14:02 | Anesthesiology Consultation ---
Date of Service August 19, 2024 Assessment & Plan Chart Review Chart Review: Acceptable Risk for Surgery ASA [id number] Proposed Anesthesia Anesthesia Type: General Risk / Benefits Reviewed With: PT / POA / Parent / Guardian, Accepts Plan and Informed Consent Obtained History Surgery Operation Date: 08/19/24 13:00 Proposed Procedures p Incision and Drainage Upper Lip - Maynor Joey Nielsen, DMD Height/Weight Height: 5 ft 1 in Weight: 116.8 kg Allergies Allergy/AdvReac Type Severity Reaction Status Date / Time No Known Allergies Allergy Unverified 08/17/24 13:17 Medications Home Medications Medication Instructions Recorded Confirmed Last Taken lisinopril 10 mg tablet 10 mg PO UD 08/17/24 08/17/24 Unknown Active Medications Generic Name Dose Route Start Last Admin Trade Name Freq PRN Reason Stop Dose Admin Acetaminophen 650 mg 08/17/24 12:22 08/17/24 21:35 Acetaminophen 325 Mg Tab PO 09/16/24 12:21 650 mg Q4H PRN Administration pain/fever first line Amlodipine Besylate 5 mg 08/18/24 09:00 08/19/24 08:25 Amlodipine Besylate 5 Mg Tab PO 09/17/24 08:59 5 mg QAM DOROTHY Administration Vancomycin HCl 1,250 mg/ 275 mls @ 200 mls/hr 08/17/24 22:00 08/19/24 11:41 Dextrose IV 08/24/24 21:59 Infused Q12H DOROTHY Infusion Lactated Ringer's 1,000 mls @ 15 mls/hr 08/19/24 12:30 08/19/24 12:30 Lr IV 08/20/24 12:29 0 mls/hr .Q24H DOROTHY Infusion Ketorolac Tromethamine 10 mg 08/17/24 12:22 08/18/24 07:55 Ketorolac Tromethamine 15 Mg/Ml Vial IV 08/22/24 12:21 10 mg Q6H PRN Administration Pain, second line Morphine Sulfate 2 mg 08/17/24 12:22 08/19/24 11:43 Morphine Sulfate 2 Mg/Ml Carp IV 08/31/24 12:21 2 mg Q4H PRN Administration Breakthrough Pain Oxycodone HCl 5 mg 08/18/24 08:37 08/19/24 08:25 Oxycodone Hcl Ir 5 Mg Tab (Immediate Release) PO 09/01/24 08:36 5 mg Q4H PRN Administration Pain NPO Date Last Intake of Fluids: 08/19/24 Time Last Intake of Fluids: 08:25 Last Intake of Fluids Comment: took am meds with sip Date Last Intake of Solids: 08/18/24 Time Last Intake of Solids: 18:00 Exercise / Class Metabolic Activity II 4-5 Yardwork/Stairs/Walk up hill Past Anesthesia History No Hx of Anesthesia Complications History of PONV No Hx of PONV Social History Smoking Status: Current every day smoker Do You Dip or Chew Tobacco: No Hx Alcohol Use: No Hx Substance Use: No Review of Systems ROS Unobtainable: All systems reviewed & are unremarkable except as noted in HPI & below Physical Exam Vital Signs Last Vital Signs Temp 36.8 C 08/19/24 12:22 Pulse 60 08/19/24 12:22 Resp 16 08/19/24 12:22 BP 129/70 08/19/24 12:22 Pulse Ox 95 08/19/24 12:22 O2 Del Method Room Air 08/19/24 12:22 ENMT Thyromental Distance: > or= 3.5 Finger Breadths Mallampati Class: II Respiratory normal respiratory effort Auscultation: lungs clear to auscultation bilaterally Cardiovascular Rate/Rhythm: regular rate and regular rhythm Psychiatric Orientation: alert and oriented x 3 Testing Laboratory Results 08/19/24 08:05 08/19/24 08:05 08/17/24 09:18 Aerobic Blood Culture - Preliminary Blood Staphylococcus hominis Anaerobic Blood Culture - Final 08/17/24 09:18 Aerobic Blood Culture - Preliminary Blood No growth in Aerobic bottle after 48 hours. Anaerobic Blood Culture - Preliminary No growth in Anaerobic bottle after 48 hours. 08/18/24 16:20 Gram Stain - Final Lip Wound Culture - Preliminary Staphylococcus aureus 08/19/24 Unknown POC Ur Test NEG
--- NOTE | 2024-08-19 14:08 | History & Physical Bridge Note ---
Date of Service August 19, 2024 History & Physical Bridge Note I have examined the patient, reviewed the History & Physical and in the interval since the performance of the History & Physical I have noted the following changes of clinical significance: no changes noted. OK for the planned I&D upper lip
[2024-08-19] MEDS ORDERED: HYDROmorphone INJ 2 MG/ML SYR/VIAL ONE (14:51)
[2024-08-19] MEDS: BUPIVACAINE/EPINEPHRINE 0.5% 1:200,000 1.8 ML CARP ONE (14:58)
[2024-08-19] MEDS: TRIAMCINOLONE ACET 0.1% OINT 15 GM TUBE ONE (14:59)
[2024-08-19] MEDS: CHLORHEXIDINE GLUCONATE 0.12% 480 ML MT ONE (15:01)
--- NOTE | 2024-08-19 15:10 | Post Operative Brief Note ---
PG Immediate Post Op with CF Date of Surgery August 19, 2024 Pre & Post Diagnosis Operation Date: 08/19/24 13:00 Pre-Op Diagnosis: Facial cellulitus with abscess Post-Op Diagnosis: Facial cellulitus with abscess I identified the patient and participated in the time-out.: Yes Procedure Operation Date: 08/19/24 13:00 Actual Procedures p Incision and Drainage Upper Lip(Not Applicable) - Maynor Nielsen DMD Surgeon Maynor Nielsen DMD Control Officer Manager none Estimated Blood Loss 3 Findings Consistent with Post-Op Diagnosis acute staph infection upper lip Specimens Specimen Description: Microbiology 1. Infection Upper Lip Drains Adrian Drain (1/4 inch) Anesthesia Type General Disposition Accompanied Patient To Recovery: Yes
--- NOTE | 2024-08-19 15:15 | Operative Report ---
PG Post Operative Report Pre & Post Diagnosis Operation Date: 08/19/24 13:00 Pre-Op Diagnosis: Facial cellulitus with abscess Post-Op Diagnosis: Facial cellulitus with abscess I identified the patient and participated in the time-out.: Yes Procedure Operation Date: 08/19/24 13:00 Actual Procedures p Incision and Drainage Upper Lip(Not Applicable) - Maynor Nielsen DMD Surgeon Maynor Nielsen DMD Allergy Specialist none Estimated Blood Loss 3 Findings Consistent with Post-Op Diagnosis Specimens I&D Drains Holland 1/4 Anesthesia Type General Complications none Disposition Accompanied Patient To Recovery: Yes Indications Infected upper lip Description of Procedure Actual Procedures CPT 69961 I&D upper lip and nasal septum ICD 10 L3.211 p Incision and Drainage upper lip Abscess; (Not Applicable) - Maynor Nielsen DMD Once cleared for surgery general anesthesia was achieved, the eyes were protected by the anesthesia dept criteria. A time out was take for patient ID, antibiotics, equipment and position verification once all agreed the procedure began. Local anesthesia using Marcaine with a vasoconstrictor ( 1.8 ml per site) given into upper mucobuccal fold and infraorbital area bilateral A throat pack was placed after the oral cavity was irrigated with saline. Once a surgical level of anesthesia was obtained and the local anesthesia was given time for the blocks the surgery was started. I turned my attention to the infection which was located in the upper lip and left cheek, base of the nose Incision and Drainage Using a 15 blade an incision was made in the most fluctuant area of the upper mucosal area of the lip in the midline. Once the incision was made a lot of pus extruded from the site. This drainage was cultured for anaerobic and aerobic bacteria. A curved hemostat was carefully placed into the infected space which tracked from the upper lip, base of the nose and into the left cheek area. Some further drainage was now allowed to escape. I palpated the face area and no further drainage was expressed. The area was irrigated with at least 100 ml of NS solution and Peridex. I now turned my attention to placing a 1/4 inch Aurora drain from the lip to the left cheek and sutured the Drain with a 2-0 chromic. I inspected the sites to insure all bleeding was controlled. I removed the throat pack and suctioned the throat. All instrument and sponge count was correct. The patient was allowed to awake from the anesthesia. Once full awake the anesthesia tube was removed and the patient was taken to the recovery room with all vital sign stable. The patient tolerated the surgery very well. I will follow the patient in my office, Rx and instructions will be given upon discharge. I attest to the content of the Intraoperative Record and any orders documented therein. Any exceptions are noted below.
[2024-08-19] MEDS: fentaNYL citrate PF 100 MCG/2 ML VIAL IV PRN (15:28)
--- NOTE | 2024-08-19 17:26 | Anesthesiology Progress Note ---
Date of Service August 19, 2024 Anesthesia Post Procedure Vital Signs Vital Signs: Temp Pulse Pulse Resp BP BP Pulse Ox 08/19/24 17:19 66 16 148/78 H 96 08/19/24 16:49 66 16 151/78 H 97 08/19/24 16:00 62 18 145/74 H 95 08/19/24 15:50 36.4 C L 57 L 12 149/79 H 95 08/19/24 15:40 77 20 149/78 H 96 08/19/24 15:30 74 16 177/96 H 95 08/19/24 15:20 78 16 162/89 H 100 08/19/24 15:13 36.0 C L 92 H 14 171/97 H 99 08/19/24 12:22 36.8 C 60 16 129/70 95 08/19/24 07:13 36.7 C 61 16 127/79 96 08/18/24 20:00 37.8 C H 78 18 128/77 97 O2 Del Method O2 Flow Rate 08/19/24 17:19 Room Air 08/19/24 16:49 Room Air 08/19/24 16:00 Room Air 08/19/24 15:50 Room Air 08/19/24 15:40 Room Air 08/19/24 15:30 Room Air 08/19/24 15:20 Oxymask 4 08/19/24 15:13 Oxymask 6 08/19/24 12:22 Room Air 08/19/24 07:13 Room Air 08/18/24 20:00 Room Air Pain Intensity Face: Pain Intensity: 6 Left Cheek: Pain Intensity: 5 Transfer of Care Handoff Completed per policy Notes Mental Status: alert / awake / arousable Patient Amnestic to Procedure: Yes Nausea / Vomiting: adequately controlled Pain: adequately controlled Airway Patency, RR, SpO2: stable & adequate BP & HR: stable & adequate Hydration State: stable & adequate Anesthetic Complications: no major complications apparent and Pt Satisfied with anesthetic care
[2024-08-20 08:32] LABS: Hematocrit (blood only) 33.9 % (37.0-47.0); Hemoglobin 11.1 g/dl (12.0-16.0); Immature Granulocytes # (auto) 0.03 K/uL (0.01-0.20); Immature Granulocytes % (auto) 0.5 %; Lymphocytes # (auto) 0.61 K/uL (1.20-3.40); Mean Corpuscular Hemoglobin 28.6 pg (25.0-34.0); Mean Corpuscular Hgb Conc 32.7 g/dL (32.0-36.0); Mean Corpuscular Volume 87.4 fL (80.0-100.0); Mean Platelet Volume 11.4 fL (9.4-12.4); Monocytes # (auto) 0.37 K/uL (0.11-0.59); Monocytes % (auto) 6.7 %; Neutrophils # (auto) 4.53 K/uL (1.40-6.50); Neutrophils % (auto) 81.8 %; Platelet Count 241 K/uL (130-400); RDW Coefficient of Variation 12.4 % (11.5-14.5); RDW Standard Deviation 39.8 fL (36.4-46.3); Red Blood Count 3.88 M/uL (4.20-5.40); White Blood Count 5.54 K/ul (4.8-10.8)
[2024-08-20 08:44] LABS: Calcium 9.7 mg/dl (8.6-10.3); Creatinine Clr Calc Pharmacy 97.9 ml/min; Potassium 4.3 mmol/L (3.5-5.1)
--- NOTE | 2024-08-20 09:04 | Electrocardiogram Report ---
Test Reason : Blood Pressure : */* mmHG Vent. Rate : 60 BPM Atrial Rate : 60 BPM P-R Int : 144 ms QRS Dur : 82 ms QT Int : 434 ms P-R-T Axes : 18 34 39 degrees QTcB Int : 434 ms Normal sinus rhythm Normal ECG No previous ECGs available Confirmed by Hansel Del Real ([id number]) on 08/20/2024 9:03:47 AM Referred By: REFERRED SELF Confirmed By: Hansel Del Real
--- NOTE | 2024-08-20 11:03 | Hospitalist Progress Note ---
Date of Service August 20, 2024 Assessment & Plan (1) Cellulitis and abscess of face: Plan: Improving on vancomycin day 4. The blood cultures reveal Staph hominis which is probably a contaminant. Lip culture reveals MRSA. She is improving on intravenous vancomycin and eventually will go home on oral Bactrim therapy. Dr. Nielsen will remove the upper lip drain later today, August 20. She underwent incision and drainage procedure yesterday, August 19 (2) GERD (gastroesophageal reflux disease): Plan: Stable. Continue PPI therapy (3) HTN (hypertension): Plan: Blood pressure is acceptable on amlodipine. She recently ran out of her lisinopril. Plan Anticipate eventual discharge back to her home tomorrow, August 21, on oral Bactrim therapy and amlodipine. Admission and Anticipated Discharge Date Admission Date: August 17, 2024 Subjective Continued improvement on intravenous vancomycin day 4. Lip culture reveals MRSA which is different from the Staph hominis isolated in the blood which appears to be a contaminant. Will eventually discharge her home on oral Bactrim therapy. Dr. Nielsen will remove the lip drain today, August 20. Blood pressure well- controlled on amlodipine. Anticipate discharge to home tomorrow, August 21 Review of Systems 2 Review of Systems: Constitutionalno fever or chills ENTno blurred vision, no double vision, no epistaxis, no sore throat Respiratoryno cough, no wheezing, no shortness of breath Cardiacno palpitations, no chest pain, no syncope Sheldon nausea, vomiting, diarrhea, melena, hematochezia GUno urinary retention, no urinary incontinence, no dysuria, no hematuria Musculoskeletalno joint pain, no muscle tenderness Skindiffuse erythema left face with edema and erythema upper lip are resolving. Drain is in place in the upper lip incision and drainage site Neurono isolated weakness, no paresthesia Psychno depression, no anxiety Physical Exam 2 Physical Exam: General-alert and oriented x3, no fever, no chills HEENT-resolving swelling and erythema left facial area and upper lip. Drain is in place in the upper lip incision and drainage site. Pupils equal and reactive to light, extraocular muscles intact Neck-no lymphadenopathy or thyromegaly, trachea midline Chest-clear to auscultation. No rales, wheezing or rhonchi Cardiac-regular rate and rhythm, normal S1 and S2 Abdomen-normal bowel sounds, no hepatosplenomegaly Extremities-no cyanosis, clubbing, or edema Neuro-cranial nerves II through XII intact, motor and sensory function within normal limits, strength symmetrical, no focal deficits Psych-normal affect, normal mood Results & Data Results & Data Vital Signs (Past 12 Hours) Vital Signs Temp Pulse Resp BP Pulse Ox O2 Del Method 08/20/24 07:36 36.6 C 71 18 151/82 H 95 Room Air 08/20/24 02:55 37.1 C 54 L 16 150/72 H 93 Room Air 08/19/24 23:20 36.9 C 65 16 131/78 96 Room Air Laboratory Results 08/20/24 07:37 08/20/24 07:37 PG Care Time/CCT Total # of Minutes Spent Total Time Spent with Patient: Total time spent is greater than 50% in coordination of care (as documented) at patient's floor/unit and/or counseling patient: Coding Level of Care Code 42461 SUB INP/OBS CARE 2/35MIN Diagnoses Cellulitis and abscess of face L03.211; L02.01 GERD (gastroesophageal reflux disease) K21.9 HTN (hypertension) I10
--- NOTE | 2024-08-20 12:39 | Oral/Maxillofacial Progress Nt ---
Date of Service August 20, 2024 Assessment & Plan Admission and Anticipated Discharge Date Admission Date: August 17, 2024 Subjective Post Op infection evaluation at 24 hours The infected lip infection is resolving very well. Swelling is less and the tissue is getting back to normal size and texture. No further drainage is noted. Drain was removed. Cultures were reviewed- as expected MRSA Infection has responded very well to the antibiotics and the I and D. I requested that the patient continue with massage, heat and wound care. At this time Savanah may be discharged on oral antibiotic and adequate pain Meds. She has my contact info if she would like me to follow up on her in 10-14 days she can call for a appointment otherwise she can follow up with her PCP closer to her home. RTC as needed. Results & Data Vital Signs (Past 12 Hours) Vital Signs Temp Pulse Resp BP Pulse Ox Pulse Ox O2 Del Method 08/20/24 11:22 37 C 56 L 18 126/75 95 Room Air 08/20/24 11:00 98 08/20/24 07:36 36.6 C 71 18 151/82 H 95 Room Air 08/20/24 02:55 37.1 C 54 L 16 150/72 H 93 Room Air O2 Del Method 08/20/24 11:22 08/20/24 11:00 Room Air 08/20/24 07:36 08/20/24 02:55 PG Care Time/CCT Total # of Minutes Spent Total Time Spent with Patient: Total time spent is greater than 50% in coordination of care (as documented) at patient's floor/unit and/or counseling patient: Coding Level of Care Code None
[2024-08-21 07:16] VITALS: BP 154/92; PULSE 55; RESP 16; TEMP 98.4; O2SAT 99
== END 2024-08-21 12:10 | disposition home or self-care (01) | DRG 580 ==
LOC: ED 08:48 → EDINP 12:22 → SUATTDRO 12:22 → 3N 14:00